=== PATIENT | female | born 1960 | race African-American/Black ===

== ENCOUNTER 2017-07-01 01:49 | Emergency (ER) | payer SELFPAY ==
[~2017-07-01] VITALS: Ht 154.9 cm; Wt 65.8 kg
[2017-07-01 02:40] VITALS: BP 166/90
== END 2017-07-01 07:02 | disposition left against medical advice (07) ==
LOC: ER 01:49
DX: F10.120 Alcohol abuse with intoxication, uncomplicated (principal); Z53.21 Procedure and treatment not carried out due to patient leaving prior to being seen by health care provider
CPT/HCPCS: 93005